=== PATIENT | female | born 1955 | race African-American/Black ===

== ENCOUNTER 2020-08-13 21:07 | Emergency (ER) | payer OTHER ==
[~2020-08-13] VITALS: Ht 160 cm; Wt 110.7 kg
[2020-08-13 22:28] VITALS: BP 136/56
== END 2020-08-13 23:18 | disposition home or self-care (01) ==
LOC: ER 21:09
DX: L72.3 Sebaceous cyst (principal); M19.90 Unspecified osteoarthritis, unspecified site; E78.5 Hyperlipidemia, unspecified
CPT/HCPCS: 72192